=== PATIENT | female | born 1955 | race Caucasian/White ===

== ENCOUNTER → 2016-07-12 | Outpatient (CLI) | payer MEDICARE, MEDICAID ==
[~2016-07-12] MED LIST: BENGAY/ICY HOT/30 GM TOP; BETAPACE (GENER80 MG PO; COZAAR25 MG PO; DEMADEX20 MG PO; DULCOLAX10 MG R; ELIQUIS5 MG PO; FLORASTOR250 MG PO; HYDROCODON-ACE1 EAC4 PO; K-TAB 10MEQ10 MEQ PO; LEVOTHROID (SY50 MCG PO; MILK OF MA400 MG/5 M PO; MIRALAX17 GM PO; PEPTO BISMOL LIQ1 ML PO; PRILOSEC20 MG PO; ROBITUSSIN DM120 ML PO; TOPROL XL25 MG PO; TYLENOL EXTRA500 MG PO; ULTRAM50 MG PO; ZAROXOLYN5 MG PO
[2016-07-12 18:05] LABS: BASOPHIL % 0.1 %; EOSINOPHIL # 0.1 K/uL (0.0-0.5); EOSINOPHIL % 1.4 %; HEMATOCRIT 40.3 % (33.0-46.0); HEMOGLOBIN 12.9 g/dL (10.0-15.0); IMMATURE GRANULOCYTE % 0.3 %; LYMPHOCYTE # 0.9 K/uL (0.8-4.0); LYMPHOCYTE % 9.7 %; MCH 28.1 pg (27.0-34.0); MCV 87.8 fl (83.0-98.0); MONOCYTE # 0.6 K/uL (0.0-1.0); MONOCYTE % 6.6 %; NEUTROPHIL # (ANC) 7.8 K/uL (1.8-7.8); NEUTROPHIL % 81.9 %; NRBC % 0 /100WBC (0-0.00); PLATELET COUNT 154 K/uL (150-450); RDW-CV 13.9 % (11.9-14.6); WBC 9.5 K/uL (4.0-11.0)
[2016-07-12 18:08] LABS: RBC 4.59 M/uL (3.50-5.50)
[2016-07-12 18:20] LABS: ALBUMIN 2.4 gm/dL (3.5-5.0); ANION GAP 14.4 (10.0-19.0); CALCIUM 8.2 mg/dL (8.5-10.5); CREATININE 1.1 mg/dL (0.5-1.1); POTASSIUM 4.4 mMol/L (3.7-5.1); TOTAL BILIRUBIN 0.2 mg/dL (0.0-1.5); TOTAL PROTEIN 7.2 g/dL (6.0-8.4)
== END | disposition disaster alternative care site (69) ==
LOC: LNHI 17:51
PROVIDERS: Internal Medicine Cardiovascular Disease
DX: I50.32 Chronic diastolic (congestive) heart failure (principal); I48.0 Paroxysmal atrial fibrillation